=== PATIENT | male | born 1945 | race Caucasian/White ===

== ENCOUNTER → 2016-09-19 | Outpatient (CLI) | payer MEDICARE | LOC: RT 10:50 | PROVIDERS: ATTEND Internal Medicine Cardiovascular Disease | DX: I48.91 Unspecified atrial fibrillation (principal); Z09 Encounter for follow-up examination after completed treatment for conditions other than malignant neoplasm | CPT/HCPCS: 93226 ==

== ENCOUNTER 2016-10-12 09:04 | Emergency (ER) | payer MEDICARE ==
[~2016-10-12] VITALS: Ht 185.4 cm; Wt 82.0 kg
[2016-10-12] MEDS ORDERED: ONDANSETRON 2 MG/ML (Z0FRAN) 2 ML VIAL IV ONE (09:15)
[2016-10-12] MEDS ORDERED: SODIUM CHLORIDE FLUSH 10 ML SYR IV PRN (09:15)
[2016-10-12] MEDS ORDERED: SODIUM CHLORIDE 250 ML IV PRN (09:15)
[2016-10-12] MEDS ORDERED: SODIUM CHLORIDE FLUSH 3 ML SYR IV PRN (09:15)
[2016-10-12] MEDS ORDERED: morphine INJ 4 MG/ML 1 ML SYRINGE IV PRN (09:15)
[2016-10-12] MEDS ORDERED: NITROGLYCERIN SUBLINGUAL 0.4 MG (NITROQUICK) TABLET SL PRN (09:15)
[2016-10-12] MEDS ORDERED: ASPIRIN 81 MG CHEW (CHILDREN'S ASA) PO ONE (09:15)
[2016-10-12] MEDS ORDERED: ASPIRIN 81 MG CHEW (CHILDREN'S ASA) ONE (09:17)
[2016-10-12] MEDS ORDERED: NITROGLYCERIN SUBLINGUAL 0.4 MG (NITROQUICK) TABLET SL ONE (09:17)
[2016-10-12 09:31] LABS: BASOPHILS % (AUTO) 0 % (0-2); EOSINOPHILS % (AUTO) 0 % (0-4); LYMPHOCYTES # (AUTO) 1.9 X10^3; MEAN CORPUSCULAR HGB CONC 35.4 g/dL (31.0-37.0); MEAN CORPUSCULAR VOLUME 94 FL (80-100); MEAN PLATELET VOLUME 11.1 FL (6.0-9.5); MONOCYTES # (AUTO) 1.7 X10^3; MONOCYTES % (AUTO) 12 % (3-11); NEUTROPHILS # (AUTO) 10.1 X10^3; NEUTROPHILS % (AUTO) 74 % (51-67); PLATELET COUNT 216 10^3uL (150-450)
[2016-10-12 09:37] LABS: MEAN CORPUSCULAR HEMOGLOBIN 33.3 PG (26.0-34.0)
[2016-10-12 09:40] LABS: ALBUMIN 3.8 g/dL (3.4-5.0); ALKALINE PHOSPHATASE 159 U/L (38-126); BUN/CREATININE RATIO 16 (10-20); CALCULATED IONIZED CALCIUM 4.1 mg/dL (3.8-4.6); CREATINE KINASE 65 U/L (55-170); TOTAL PROTEIN 6.7 g/dL (6.4-8.5)
[2016-10-12] MEDS ORDERED: NITROGLYCERIN DRIP 25 MG/D5W 250 ML IV ONE (09:42)
[2016-10-12] MEDS: meTOprolol 5 MG/5 ML (LOPRESSOR) VIAL IV SCH ×3 (09:49→10:21)
--- NOTE | 2016-10-12 09:52 | NUR ---
DR RAZO CALLS DR VÁSQUEZ RE PT. CL
--- NOTE | 2016-10-12 09:59 | NUR ---
Nitro 0918 Given pain 03/03 0921 pain 03/03 0922 given 0926 given 03/03 09 pain 02/01
--- NOTE | 2016-10-12 10:00 | NUR ---
0959 nitro drip started at 5mcg/hr 1006 titrated to 10mcg/hr 1013 titrated to 15 mcg/hr 1024 titrated to 20mcg/hr
--- NOTE | 2016-10-12 10:03 | NUR ---
DR YORK ACCEPTS PT FOR ADMIT TO [facility] THROUGH THEIR EMERGENCY DEPT WITH DR ABDALLA. CL
[2016-10-12] MEDS ORDERED: GI COCKTAIL 55 ML UDC PO ONE (10:10)
[2016-10-12] MEDS ORDERED: MAG HYDROX/AL HYDROX/SIMETH 400-400-40/5 ML (MAG-AL PLUS XS) 30 ML UDC ONE (10:22)
[2016-10-12] MEDS ORDERED: LIDOCAINE 2% VISCOUS 20ML UDC PO ONE (10:23)
[2016-10-12] MEDS ORDERED: BELLADONNA/PHENOBARBITAL ELIXIR (DONNATAL) 10 ML UDC ONE (10:23)
[2016-10-12 10:33] LABS: CREATINE KINASE 49 U/L (55-170)
[2016-10-12 10:38] VITALS: BP 113/82
== END 2016-10-12 10:40 | disposition short-term general hospital (02) ==
LOC: ED 09:06
DX: R07.9 Chest pain, unspecified (principal); R94.31 Abnormal electrocardiogram [ECG] [EKG]
CPT/HCPCS: 36415; 71010; 80053; 82550; 82553; 83880; 84484; 85025; 85610; 85730; 93005; 96361; 96374; 96375; 99285; A9270; J2270; J2405; J7030; 93010

== ENCOUNTER → 2016-10-12 | Outpatient (CLI) | payer MEDICARE | LOC: EMS 10:10 | PROVIDERS: ATTEND Family Medicine | DX: R07.89 Other chest pain (principal) ==

== ENCOUNTER → 2016-10-23 | Outpatient (CLI) | payer MEDICARE ==
[~2016-10-23] VITALS: Ht 185.4 cm; Wt 83.5 kg
[~2016-10-23] MED LIST: DIPHENHYDRAMINE PO ONE; GI COCKTAIL 55 ML UDC PO ONE; LIDOCAINE 2% PO ONE; SUCRALFATE PO ONE; VISCOUS PO ONE
[2016-10-23 10:20] VITALS: BP 146/86
--- NOTE | 2016-10-23 10:59 | NUR ---
PT D/C BACK TO DR ROMERO' OFC WHICH IS WHERE HE PRESENTED FROM WITH HIS AFTER GIVING PT GI COCKTAIL PER DR ROMERO ORDER. CL
== END ==
LOC: EUOP 10:15
PROVIDERS: ATTEND Family Medicine
DX: K20.9 Esophagitis, unspecified (principal)
CPT/HCPCS: A9270 ×4